=== PATIENT | female | born 1985 | race Caucasian/White ===

== ENCOUNTER 2016-08-12 18:56 | Emergency (ER) | payer SELFPAY ==
[2016-08-12 20:05] LABS: Bilirubin,Urine NEG (Negative); Blood,Urine SM (Negative); Ketones,Urine NEG (Negative); Leukocyte Esterase,Urine NEG (Negative); Mucus,Urine FEW /HPF; Nitrite,Urine NEG (Negative); Protein,Urine <15 mg/dL mg/dL (Negative); RBC,Urine < 1.0 /HPF (0.0-6.0); Urobilinogen,Urine < 2.0 mg/dL (<2.0); WBC,Urine < 1.0 /HPF (0.0-6.0)
[2016-08-12 20:09] LABS: Basophils % (Auto) 0.3 % (0.0-1.8); Eosinophils % (Auto) 0.5 % (0.0-4.3); Hematocrit 38.9 % (30.3-42.9); Hemoglobin 13.2 gm/dl (10.1-14.3); Mean Corpuscular HGB Conc 34 % (30-34); Mean Corpuscular Hemoglobin 29 pg (28-32); Mean Corpuscular Volume 87 fl (79-97); Platelet Count 196 K/mm3 (140-440); Red Blood Count 4.49 M/mm3 (3.65-5.03); Red Cell Distribution Width 13.8 % (13.2-15.2); White Blood Count 10.2 K/mm3 (4.5-11.0)
--- NOTE | 2016-08-12 20:15 | Emergency Department Report ---
HPI - General Chief Complaint: Chest Pain Time Seen by Provider: 08/12/16 19:42 - HPI HPI: This is a 30-year-old female who presents to the emergency department with a 10 day history of mid upper abdominal discomfort and a 12 hour history of midsternal nonradiating chest pain. The patient had seen her primary care doctor a few days ago for the abdominal pain and was started on Cipro and Flagyl empirically with a suspicion for some type of intra-abdominal infection. The patient denies any shortness of breath, vomiting, dysuria, vaginal bleeding, vaginal discharge or fever. There is some occasional nausea. No recent travel or sick contacts at home. No past medical history. ED Past Medical Hx - Past Medical History Previous Medical History?: No Hx Hypertension: No Hx Congestive Heart Failure: No Hx Diabetes: No Hx Deep Vein Thrombosis: No Hx Renal Disease: No Hx Sickle Cell Disease: No Hx Seizures: No Hx Asthma: No Hx COPD: No Hx HIV: No - Surgical History Past Surgical History?: No - Social History Smoking Status: Never Smoker Substance Use Type: None - Medications Home Medications: Home Medications Medication Instructions Recorded Confirmed Last Taken Type Vit-Fe Fumar-FA [ 1 tab PO QDAY 06/02/15 06/04/15 06/02/15 09: 00 History Vitamin] Ibuprofen [Motrin 800 MG tab] 800 mg PO Q8HR PRN #30 tablet 06/03/15 Unknown Rx oxyCODONE /ACETAMINOPHEN [Percocet 2 tab PO Q6HR PRN #30 tablet 06/03/15 Unknown Rx 5/325] Docusate Sodium [Colace] 100 mg PO BID PRN #20 capsule 08/13/16 Unknown Rx Famotidine [Pepcid] 20 mg PO QDAY #14 tablet 08/13/16 Unknown Rx Magnesium Citrate [Citrate of 300 ml PO NOW #1 bottle 08/13/16 Unknown Rx Magnesia] ED Review of Systems ROS: Stated complaint: CHEST PAIN/ABD PAIN Other details as noted in HPI Comment: All other systems reviewed and negative Constitutional: denies: chills, fever Eyes: denies: eye pain, eye discharge, vision change ENT: denies: ear pain, throat pain Respiratory: denies: cough, shortness of breath, wheezing Cardiovascular: chest pain. denies: palpitations Gastrointestinal: abdominal pain. denies: nausea, vomiting Genitourinary: denies: urgency, dysuria, discharge Musculoskeletal: denies: back pain, joint swelling, arthralgia Skin: denies: rash, lesions Neurological: denies: headache, weakness, paresthesias Physical Exam - Physical Exam Vital Signs: Vital Signs 08/12/16 08/12/16 08/12/16 19:05 19:50 20:03 Temperature 98.4 F Pulse Rate 99 H 102 H Respiratory 16 17 Rate Blood Pressure 137/84 121/74 [Right] O2 Sat by Pulse 100 100 Oximetry Physical Exam: GENERAL: The patient is well-developed well-nourished. HEENT: Normocephalic. Atraumatic. Extraocular motions are intact. Patient has moist mucous membranes. Pupils equal reactive to light bilaterally. NECK: Supple. Trachea is midline. CHEST/LUNGS: Clear to auscultation. There is no respiratory distress noted. HEART/CARDIOVASCULAR: Regular. There is no tachycardia. There is no gallop rub or murmur. ABDOMEN: Abdomen is soft. There is some tenderness to palpation to the upper quadrants of the abdomen. No guarding or rebound tenderness. Patient has normal bowel sounds. There is no abdominal distention. SKIN: Skin is warm and dry. NEURO: The patient is awake, alert, and oriented. The patient is cooperative. The patient has no focal neurologic deficits. The patient has normal speech. MUSCULOSKELETAL: There is no tenderness or deformity. There is no limitation range of motion. There is no evidence of acute injury. ED Course Vital Signs 08/12/16 08/12/16 08/12/16 19:05 19:50 20:03 Temperature 98.4 F Pulse Rate 99 H 102 H Respiratory 16 17 Rate Blood Pressure 137/84 121/74 [Right] O2 Sat by Pulse 100 100 Oximetry ED Medical Decision Making - Lab Data Result diagrams: 08/12/16 19:56 08/12/16 19:56 - EKG Data -: EKG Interpreted by Me EKG shows normal: sinus rhythm, axis, intervals, QRS complexes, ST-T waves ( nonspecific ST-T wave changes) Rate: tachycardia (110 bpm) - EKG Data When compared to previous EKG there are: previous EKG unavailable Interpretation: nonspecific ST-T wave sirisha - Radiology Data Radiology results: report reviewed, image reviewed interpreted by me: Chest x-ray did not show any acute process. Heart is normal shape and size. No effusions. No pneumothorax. No signs of pneumonia seen. Abdominal x-ray does not show any acute process. There is nonspecific nonobstructive bowel gas. There is a moderate amount of stool burden in the intestines. Transvaginal ultrasound shows mildly thickened heterogenous echogenic endometrium. No distinct lesions. Follicular-type cysts in both the ovaries. There is a complex right ovarian cyst that may represent a hemorrhagic cyst, corpus luteal cyst or endometrioma. Moderate free fluid. 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 Punctate nonobstructing left renal calculus. - Medical Decision Making 30-year-old female presents to the emergency department with a 10 day history of abdominal pain that is mostly in the upper abdomen, and a 12 hour history of some midsternal chest discomfort. Patient chest discomfort was evaluated with some labs, EKG and chest x-ray. EKG does not show any signs of ST elevation [place] , ischemia or dysrhythmia. Chest x-ray does not show any acute process. The labs include negative troponins 2 and a negative d-dimer. She has some area that is tender to palpation of the chest wall and it also may be related to some GERD. The abdominal pain was evaluated as well with labs and imaging. The labs are mostly unremarkable. There is no , no urinary tract infection, no hematuria and she has normal belly labs including bilirubin, lipase and LFTs. Abdominal x-ray shows a moderate amount of stool but otherwise no acute process. 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 After this, to evaluate the mass in relation to the uterus and ovaries, a transvaginal/pelvic ultrasound was done. This showed bilateral ovarian cysts with a right-sided complex cyst that was read as possibly being hemorrhagic versus corpus luteal versus endometrioma. On reevaluation the patient is feeling improved. However all this information was given to the patient including copies of both the CT scan and ultrasound, and referrals for [employer]. She understands she needs to follow up for further evaluation of this cyst versus mass versus both. She was also given referrals for primary care. She will return to the ER with any worsening of her symptoms or any acute distress. - Differential Diagnosis [place], PE, cholecystitis, pancreatitis, malignancy Critical Care Time: No Critical care attestation.: If time is entered above; I have spent that time in minutes in the direct care of this critically ill patient, excluding procedure time. ED Disposition Clinical Impression: Increased stool volume Chest pain Qualifiers: Chest pain type: unspecified Qualified Code(s): R07.9 - Chest pain, unspecified Abdominal pain Qualifiers: Abdominal location: unspecified location Qualified Code(s): R10.9 - Unspecified abdominal pain Ovarian cyst Qualifiers: Laterality: bilateral Qualified Code(s): N83.201 - Unspecified ovarian cyst, right side Disposition: DISCHARGED TO HOME OR SELFCARE Is pt being admited?: No Condition: Stable Instructions: Chest Pain (ED), Ovarian Cyst (ED), Gastroesophageal Reflux Disease (ED), Abdominal Pain (ED) Additional Instructions: Please follow-up with a primary care doctor in the next few days if possible. I have also given you a referral for a few [employer] physicians as you need to follow-up for the CT and ultrasound findings of ovarian cysts versus ovarian mass. I have given you a copy of the reports from both of these imaging studies sleep and show your physician. Return to the emergency department with any worsening of her symptoms or any acute distress. Prescriptions: Docusate Sodium [Colace] 100 mg PO BID PRN #20 capsule PRN Reason: Constipation Famotidine [Pepcid] 20 mg PO QDAY #14 tablet Magnesium Citrate [Citrate of Magnesia] 300 ml PO NOW #1 bottle Referrals: ROXANNE BLANCO MD [Primary Care Provider] - 3-5 Days DAVE MUNIZ MD, PHD [Staff Physician] - 3-5 Days FIOR CONWAY MD [Staff Physician] - 3-5 Days BIANCA CASE MD [Staff Physician] - 3-5 Days OSBALDO DON MD [Staff Physician] - 3-5 Days [facility] [Outside] - 3-5 Days Time of Disposition: 00:51
[2016-08-12 20:18] LABS: INR 1.05 (0.87-1.13)
[2016-08-12 20:19] LABS: Partial Thromboplastin Time 31.4 Sec. (24.2-36.6)
[2016-08-12 20:50] LABS: Alanine Aminotransferase 12 units/L (7-56); Albumin 4.5 g/dL (3.9-5); Albumin/Globulin Ratio 1.5 %; Alkaline Phosphatase 84 units/L (35-129); Anion Gap 15 mmol/L; Bilirubin,Total 0.4 mg/dL (0.1-1.2); Blood Urea Nitrogen 9 mg/dL (7-17); Calcium 9.5 mg/dL (8.4-10.2); Carbon Dioxide 28 mmol/L (22-30); Chloride 98.1 mmol/L (98-107); Glucose 136 mg/dL (65-100); Lipase 23 units/L (13-60); Potassium 4.3 mmol/L (3.6-5.0); Sodium 137 mmol/L (137-145); Total Protein 7.6 g/dL (6.3-8.2)
[2016-08-12] MEDS ORDERED: NACL 0.9% 1000 ML 1,000 ML IV ONE (21:15)
[2016-08-12] MEDS ORDERED: MORPHINE IV ONE (21:16)
--- NOTE | 2016-08-12 21:58 | Cat Scan Report ---
FINAL REPORT PROCEDURE: CT ABDOMEN PELVIS W CON TECHNIQUE: Computerized axial tomography of the abdomen and pelvis was performed after the IV injection of iodinated nonionic contrast. HISTORY: Abdominal pain COMPARISON: No prior studies are available for comparison. FINDINGS: Visualized lower thorax: No significant abnormality. Liver: Normal size and attenuation. Spleen: Normal size and attenuation. Gallbladder and biliary system: Gallbladder is present. Pancreas: Normal. Adrenals: Normal. Kidneys: Normal. GI tract: Punctate 1-2 millimeter nonobstructing calculus in the left kidney lower pole. Lymph nodes and mesentery: Normal. Vasculature: Normal. Bladder: Normal. Reproductive organs: There is a right pelvic ovoid mass which contains fat, soft tissue, and calcific density, compatible with a germ cell tumor. This measures up to 7.3 centimeters AP x 4.2 centimeters transverse x 6.2 centimeters craniocaudal. Peripherally enhancing, likely involuting, cyst is seen in the left ovary, measuring 14 millimeters. Peritoneum: Small amount of free fluid is seen in the pelvis. Musculoskeletal structures: No significant abnormality. Other: None. 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 Punctate nonobstructing left renal calculus
--- NOTE | 2016-08-13 00:36 | Ultrasound Report ---
FINAL REPORT EXAM: US PELVIS DUPLEX DOPPLER COMP HISTORY: pelvic pain, mass vs cyst? TECHNIQUE: Transabdominal and transvaginal pelvic ultrasound. PRIORS: None currently available. FINDINGS: Uterus: 8.8 x 4.6 x 5.9 cm. Homogeneous. No distinct lesions. Anteverted. Endometrium: 14.9 mm. Heterogeneously echogenic. No distinct lesions. Right ovary: 2.1 x 1.5 x 2 cm. Follicular type cyst measuring 1.1 cm. Flow is present within the ovary. Left Ovary: 3 x 2.5 x 2.4 cm. Complex cysts measuring 1.8 cm. 2 follicular type cyst measuring 0.8 and 0.8 cm. Flow is present within the ovary. Complex cyst demonstrates mildly thickened wall with mild internal echoes. Adnexal: Unremarkable. Moderate free fluid. IMPRESSION: Mildly thickened heterogeneous echogenic endometrium. No distinct lesions. Short-term interval follow-up noted. Follicular type cysts in both ovaries. Complex right ovarian cyst. Findings may represent a hemorrhagic cyst, corpus luteal cysts, or endometrioma. 6-12 week follow-up ultrasound recommended for re-evaluation. Moderate free fluid.
[2016-08-13 01:19] VITALS: BP 105/57
--- NOTE | 2016-08-13 08:33 | XRay Report ---
ABDOMINAL SERIES: History: Chest and abdominal pain. Erect chest film shows no acute or significant changes involving the heart or lung andino. There is no evidence of free air beneath the diaphragms. The gas pattern within the abdomen is unremarkable. There is no evidence of bowel dilatation, significant air-fluid levels, or masses. The psoas margins are adequately visualized. IMPRESSION: Normal abdominal series Comment: Moderate stool is seen within the colon.
== END 2016-08-13 01:20 | disposition home or self-care (01) ==
LOC: ED 18:56
DX: N83.201 Unspecified ovarian cyst, right side (principal); R10.9 Unspecified abdominal pain; R07.81 Pleurodynia; K59.00 Constipation, unspecified
CPT/HCPCS: 36415; 74022; 74177; 76830; 80053; 81001; 83690; 84484; 84703; 85025; 85379; 85610; 85730; 93005; 93010; 93975; 96374; 99285; J2270; J7030; Q9967